=== PATIENT | female | born 1980 | race Caucasian/White ===

== ENCOUNTER 2017-10-21 16:33 | Emergency (ER) | payer MEDICAID, OTHER ==
[2017-10-21] MEDS: HYDROCODONE/APAP (5/325) TAB PO (18:13)
[2017-10-21] MEDS: IBUPROFEN 600 MG TAB PO (18:13)
[2017-10-21 18:14] LABS: ADD MAN DIFF? NO
[2017-10-21 18:17] LABS: WHITE BLOOD COUNT 7.7 10^3/ul (4.8-10.8)
[2017-10-21 18:17] LABS: BASOPHIL # 0.1 10^3/ul (0.0-0.1); EOSINOPHILS # 0.3 10^3/ul (0.0-0.5); EOSINOPHILS % 3.4 % (0.0-7.0); HEMATOCRIT 41.3 % (37.0-47.0); HEMOGLOBIN 13.7 g/dl (12.0-16.0); LYMPHOCYTES # 2.4 10^3/ul (0.8-2.9); MEAN CORPUSCULAR HGB CONC 33.2 g/dl (32.0-37.0); MEAN CORPUSCULAR VOLUME 87.3 fl (82.0-101.0); MEAN PLATELET VOLUME 9.4 fl (7.4-10.4); MONOCYTE # 0.7 10^3/ul (0.3-0.9); MONOCYTES % 9.3 % (0.0-11.0); NEUTROPHIL # 4.3 10^3/ul (1.6-7.5); NEUTROPHILS % 55.2 % (39.0-77.0); PLATELET COUNT 271 10^3/UL (140-415); RED BLOOD COUNT 4.73 10^6/ul (4.20-5.40); RED CELL DISTRIBUTION WIDTH 13.2 % (11.5-14.5)
[2017-10-21 18:34] LABS: ANION GAP 13 (8-16); BLOOD UREA NITROGEN 15 mg/dl (7-20); CALCIUM 9.8 mg/dl (8.4-10.2); CARBON DIOXIDE 29 mmol/L (21-31); CHLORIDE 107 mmol/L (97-110); CREATININE 0.72 mg/dl (0.44-1.00); GLUCOSE 87 mg/dl (70-220); POTASSIUM 4.4 mmol/L (3.5-5.1); SODIUM 145 mmol/L (135-144)
[2017-10-21 18:49] LABS: TROPONIN-I < 0.012 ng/ml (0.00-0.12)
== END 2017-10-21 19:11 | disposition home or self-care (01) ==
LOC: FTE 16:33
DX: R51 Headache (principal); M54.2 Cervicalgia; M79.602 Pain in left arm; R20.0 Anesthesia of skin; R07.89 Other chest pain; H53.8 Other visual disturbances
CPT/HCPCS: 36415; 71045; 72040; 80048; 84484; 85025; 93005; 99285-25